=== PATIENT | male | born 1995 | race Caucasian/White ===

== ENCOUNTER 2017-03-24 11:24 | Emergency (ER) | payer SELFPAY ==
[~2017-03-24 11:24] MED LIST: ALEVE220 M3 PO; NORCO 7.5-3251 EACH PO; NORFLEX100 MG PO
[2017-03-24] MEDS ORDERED: NO HOME MEDS (11:59)
== END 2017-03-24 12:33 ==
LOC: EDMED 11:24
DX: Z02.79 Encounter for issue of other medical certificate (principal); F17.210 Nicotine dependence, cigarettes, uncomplicated

== ENCOUNTER 2017-03-26 | Emergency (ER) | payer SELFPAY ==
[~2017-03-26] MED LIST changes: +NO HOME MEDS
== END 2017-03-26 10:21 | disposition left against medical advice (07) ==
DX: M25.562 Pain in left knee (principal); G89.29 Other chronic pain

== ENCOUNTER 2017-04-23 20:25 | Emergency (ER) | payer SELFPAY | END 2017-04-23 21:15 | disposition left against medical advice (07) | LOC: EDMED 20:25 | DX: S99.911A Unspecified injury of right ankle, initial encounter (principal); Z53.29 Procedure and treatment not carried out because of patient's decision for other reasons; X50.1XXA Overexertion from prolonged static or awkward postures, initial encounter ==